=== PATIENT | male | born 1955 | race Caucasian/White ===

== ENCOUNTER 2019-05-26 08:42 | Emergency (ER) | payer BC ==
[2019-05-26] MEDS ORDERED: Ibuprofen 800 MG TAB ONE (09:07)
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
== END 2019-05-26 10:43 | disposition home or self-care (01) ==
LOC: ERS 08:42
DX: S16.1XXA Strain of muscle, fascia and tendon at neck level, initial encounter (principal); S39.012A Strain of muscle, fascia and tendon of lower back, initial encounter; V43.52XA Car driver injured in collision with other type car in traffic accident, initial encounter
CPT/HCPCS: 71046; 72100; 72125

== ENCOUNTER 2020-05-31 07:58 | Outpatient (CLI) | payer BC ==
--- NOTE | 2020-05-31 09:15 | MRI ---
MRI lumbar spine noncontrast: HISTORY: Lumbar radiculopathy. Bilateral leg pain. Patient fell last year from horse. Rib fractures. COMPARISON: None. FINDINGS: Overall appropriate T1 marrow signal intensity of the lumbar vertebrae. Lumbar spine vertebral body heights are maintained. There is no fracture. No significant STIR hyperintensity to suggest vertebral body edema or ligamentous injury. There is bilateral facet hypertrophy at L3-L4, L4-L5 and L5-S1. Spondylolisthesis: 0.8 cm of anterolisthesis of L4 upon L5. Appropriate signal intensity of the paraspinal muscles and solid organs. Conus medullaris terminates at the inferior aspect of T12. T12-L1:Adequate disc hydration. No posterior disc abnormality. No significant central canal stenosis or significant neural foraminal narrowing. L1-L2:Adequate disc hydration. No posterior disc abnormality. No significant central canal stenosis o r significant neural foraminal narrowing. L2-L3:Adequate disc hydration. Broad-based disc bulge abuts the thecal sac. Mild ligament flavum thic kening and facet hypertrophy. Trace fluid in both facet joints. Mild bilateral neural foraminal narrowing. L3-L4:Adequate disc hydration. There is a broad-based disc bulge with a left foraminal and extraforam inal component. There is ligamentum flavum thickening and facet hypertrophy. Mild to moderate central canal stenosis. Moderate right and moderate to severe left neural foraminal narrowing. There is mass effect upon the extraforaminal left L3 nerve root. L4-L5:Moderate loss of disc space height. Broad-based disc bulge results in moderate to severe centra l canal stenosis. Obscuration of the traversing right L5 nerve root. Moderate right and mild left neural foraminal narrowing. L5-S1:Moderate loss of disc space height. Broad-based disc bulge results in mild to moderate central canal stenosis. Partial obscuration of the traversing left S1 nerve root. Moderate bilateral foraminal narrowing. There is bilateral facet hypertrophy. IMPRESSION: Multilevel degenerative changes of the lumbar spine as described above. Transcribed Date/Time: 05/31/2020 9:38 AM
== END 2020-05-31 07:59 | disposition home or self-care (01) ==
LOC: TBSIIMAG 07:58
PROVIDERS: ATTEND Family Medicine
DX: M47.26 Other spondylosis with radiculopathy, lumbar region (principal)
CPT/HCPCS: 72148

== ENCOUNTER 2020-06-22 09:01 | Outpatient (CLI) | payer BC ==
--- NOTE | 2020-06-22 09:31 | RAD ---
EXAM: XR Lumbar Spine Bending Min 4V PROVIDED CLINICAL HISTORY: Spinal stenosis of lumbar region COMPARISON: 05/26/2019 FINDINGS: Again noted are degenerative changes in the lower lumbar spine with prominent facet degenerative garcia ges. Mild grade 1 anterolisthesis of L3 on L4 is present measuring 5 mm on extension and 7 mm on flexion. There is also grade 1 anterolisthesis of L4 on L5 measuring approximately 12 mm on both flex ion and extension views. No additional level of subluxation is seen. Vertebral body heights are within normal limits. There is persistent narrowing of the L4-5 and L5-S1 intervertebral disc spaces. Bilateral hip osteoarthritis is present. Views lumbar spine are overall similar to prior exam. IMPRESSION: Grade 1 anterolisthesis of L3 on L4 and L4 and L5 with minimal abnormal translational motion at the L 3-4 level. Prominent degenerative changes are again seen in the lower lumbar spine including prominent facet hypertrophic changes.
== END 2020-06-22 09:02 | disposition home or self-care (01) ==
LOC: BICRAD 09:01
PROVIDERS: ATTEND Anesthesiology Pain Medicine
DX: M48.061 Spinal stenosis, lumbar region without neurogenic claudication (principal); M43.16 Spondylolisthesis, lumbar region; M47.816 Spondylosis without myelopathy or radiculopathy, lumbar region
CPT/HCPCS: 72120